=== PATIENT | male | born 1995 | race Caucasian/White ===

== ENCOUNTER 2019-05-20 15:17 | Outpatient (CLI) | payer OTHER | END 2019-05-20 15:18 | disposition critical access hospital (66) | LOC: EMS 15:17 | PROVIDERS: ATTEND Surgery | DX: R40.20 Unspecified coma (principal) | CPT/HCPCS: A0425; A0427 ==

== ENCOUNTER 2019-05-20 15:39 | Emergency (ER) | payer OTHER ==
[2019-05-20] MEDS ORDERED: SODIUM CHLORIDE 0.9% 1,000 ML IV ONE ×3 (15:56→17:29)
[2019-05-20 15:59] LABS: BASOPHILS % (AUTO) 0.3 %; EOSINOPHILS # (AUTO) 0.1 10^3/uL (0.0-0.7); EOSINOPHILS % (AUTO) 1.5 %; HGB - HEMOGLOBIN 15.2 g/dL (14.0-18.0); LYMPHOCYTES # (AUTO) 1.7 10^3/uL (1.5-3.5); LYMPHOCYTES % (AUTO) 23.8 %; MEAN CORPUSCULAR HGB CONC 34.9 g/dL (32.0-36.0); MEAN CORPUSCULAR VOLUME 88.8 fL (80.0-94.0); MEAN PLATELET VOLUME 10.7 fL (7.4-11.4); MONOCYTES # (AUTO) 0.9 10^3/uL (0.0-1.0); MONOCYTES % (AUTO) 12.1 %; NEUTROPHILS # (AUTO) 4.4 10^3/uL (1.5-6.6); NEUTROPHILS % (AUTO) 61.9 %; PLT - PLATELET COUNT 187 10^3/uL (130-450); RED CELL DISTRIBUTION WIDTH 11.7 % (12.0-15.0); WHITE BLOOD COUNT 7.1 x10^3/uL (4.8-10.8)
--- NOTE | 2019-05-20 16:00 | ED Physician Documentation ---
History of Present Illness - Stated complaint Stated Complaint: OD - Chief complaint Chief Complaint: General - History obtained from History obtained from: Patient, Family, EMS - History of Present Illness Timing: Today Pain level max: 0 Pain level now: 0 - Additonal information Additional information: 24-year-old male states that he took a 30 mg Percocet at 3 AM and took a second 1 at an unknown time. He was at the [employer] drive[place]through when he became unconscious in his vehicle. No pneumonia was called. He apparently was not breathing. He did have pulses however. Breathing was assisted and Narcan given. Symptoms resolved. Patient states that he is not homicidal or suicidal. He does state that he was trying to get high. Better with Narcan. Nothing makes it worse Patient does state that these were not prescribed to him Review of Systems Ten Systems: 10 systems reviewed and negative Constitutional: denies: Fever, Chills Cardiac: denies: Chest pain / pressure Respiratory: denies: Cough, Wheezing GI: denies: Abdominal Pain, Nausea, Vomiting, Diarrhea Skin: denies: Rash Musculoskeletal: denies: Neck pain, Back pain Neurologic: denies: Headache PD PAST MEDICAL HISTORY - Past Medical History Past Medical History: No - Past Surgical History Past Surgical History: No - Allergies Allergies/Adverse Reactions: Allergies Allergy/AdvReac Type Severity Reaction Status Date / Time No Known Drug Allergies Allergy Verified 05/20/19 15:41 - Social History Does the pt smoke?: Yes Smoking Status: Current every day smoker Does the pt drink ETOH?: No Does the pt have substance abuse?: No - Immunizations Immunizations are current?: No - POLST Patient has POLST: No PD ED PE NORMAL - Vitals Vital signs reviewed: Yes - General General: Alert and oriented X 3, No acute distress, Well developed/nourished - HEENT HEENT: Moist mucous membranes, Other ([place] pupils bilaterally) - Neck Neck: Supple, no meningeal sign - Cardiac Cardiac: RRR, Strong equal pulses - Respiratory Respiratory: No respiratory distress, Clear bilaterally - Abdomen Abdomen: Soft, Non tender, Non distended - Derm Derm: Warm and dry, No rash - Extremities Extremities: No edema, No calf tenderness / cord - Neuro Neuro: Alert and oriented X 3, residential life director 2-12 intact, No motor deficit, No sensory deficit, Normal speech Eye Opening: Spontaneous Motor: Obeys Commands - Psych Psych: Normal mood, Normal affect Results - Vitals Vitals: Vital Signs - 24 hr 05/20/19 05/20/19 05/20/19 15:41 15:50 18:14 Temperature 37.3 C Heart Rate 109 H 105 H 83 Respiratory 14 12 15 Rate Blood Pressure 142/80 H 142/80 H 107/52 L O2 Saturation 100 99 98 05/20/19 20:00 Temperature Heart Rate 77 Respiratory 12 Rate Blood Pressure 105/50 L O2 Saturation 98 Oxygen O2 Source Room air - EKG (time done) 1545 Rate: Rate (enter#) (103) Rhythm: Sinus tachycardia [place]: Normal Intervals: Normal [place] QRS: Normal Ischemia: Normal ST segments - Labs Labs: Laboratory Tests 05/20/19 05/20/19 05/20/19 15:51 15:51 15:51 WBC 7.1 RBC 4.90 Hgb 15.2 Hct 43.5 MCV 88.8 MCH 31.0 MCHC 34.9 RDW 11.7 L Plt Count 187 MPV 10.7 Neut # (Auto) 4.4 Lymph # (Auto) 1.7 [place] # (Auto) 0.9 Eos # (Auto) 0.1 Baso # (Auto) 0.0 Absolute Nucleated RBC 0.00 Nucleated RBC % 0.0 Sodium 140 Potassium 3.3 L Chloride 104 Carbon Dioxide 26 Anion Gap 10.0 BUN 13 Creatinine 1.0 Estimated GFR (MDRD) 90 Glucose 131 H Calcium 9.7 Total Bilirubin 3.4 H AST 28 ALT 26 Alkaline Phosphatase 41 L Total Protein 7.4 Albumin 5.0 Globulin 2.4 Albumin/Globulin Ratio 2.1 Lipase 29 TSH 3.20 Urine Color Urine Clarity Urine pH Ur Specific [place] Urine Protein Urine Glucose (UA) Urine Ketones Urine Occult Blood Urine Nitrite Urine Bilirubin Urine Urobilinogen Ur Leukocyte Esterase Urine RBC Urine WBC Ur Squamous Epith Cells Amorphous Sediment Urine Bacteria Urine Casts Ur Microscopic Review Urine Culture Comments Salicylates < 6.0 Urine Opiates Screen Ur Oxycodone Screen Urine Methadone Screen Ur Propoxyphene Screen Acetaminophen < 10 L Ur Barbiturates Screen Ur Tricyclics Screen Ur Phencyclidine Scrn Ur Amphetamine Screen U Methamphetamines Scrn U Benzodiazepines Scrn Urine Cocaine Screen U Cannabinoids Screen Ethyl Alcohol < 5.0 05/20/19 16:00 WBC RBC Hgb Hct MCV MCH MCHC RDW Plt Count MPV Neut # (Auto) Lymph # (Auto) [place] # (Auto) Eos # (Auto) Baso # (Auto) Absolute Nucleated RBC Nucleated RBC % Sodium Potassium Chloride Carbon Dioxide Anion Gap BUN Creatinine Estimated GFR (MDRD) Glucose Calcium Total Bilirubin AST ALT Alkaline Phosphatase Total Protein Albumin Globulin Albumin/Globulin Ratio Lipase TSH Urine Color YELLOW Urine Clarity CLEAR Urine pH 7.0 Ur Specific [place] 1.020 Urine Protein 30 H Urine Glucose (UA) NEGATIVE Urine Ketones NEGATIVE Urine Occult Blood NEGATIVE Urine Nitrite NEGATIVE Urine Bilirubin NEGATIVE Urine Urobilinogen 1 (NORMAL) Ur Leukocyte Esterase NEGATIVE Urine RBC None Seen Urine WBC 0-3 Ur Squamous Epith Cells NONE SEEN Amorphous Sediment Few Urine Bacteria None Seen Urine Casts 0-2 Hyaline Casts Ur Microscopic Review INDICATED Urine Culture Comments NOT INDICATED Salicylates Urine Opiates Screen NEGATIVE Ur Oxycodone Screen NEGATIVE Urine Methadone Screen NEGATIVE Ur Propoxyphene Screen NEGATIVE Acetaminophen Ur Barbiturates Screen NEGATIVE Ur Tricyclics Screen NEGATIVE Ur Phencyclidine Scrn NEGATIVE Ur Amphetamine Screen NEGATIVE U Methamphetamines Scrn NEGATIVE U Benzodiazepines Scrn NEGATIVE Urine Cocaine Screen NEGATIVE U Cannabinoids Screen POSITIVE H Ethyl Alcohol PD MEDICAL DECISION MAKING - ED course Complexity details: reviewed results, re-evaluated patient, considered differential, d/w patient, d/w family ED course: Patient observed for several hours in the emergency department. He did get drowsy at one point, but did not need any oxygen or resuscitative measures. His urine drug screen is negative for opiates, possible that he received fentanyl rather than oxycodone. Patient was given resources for narcotic abuse. His family stayed with him in the emergency department. At the time of discharge, he is awake, alert and speaking clearly without any drowsiness or slurring of his speech. Patient counseled regarding the dangers of using narcotics, especially those that are not prescribed to him or purchased off of the street. Patient and family counseled regarding signs and symptoms for which I believe and urgent re-evaluation would be necessary. Patient with good understanding of and agreement to plan and is comfortable going home at this time This document was made in part using voice recognition software. While efforts are made to proofread this document, sound alike and grammatical errors may occur. Departure - Departure Disposition: 01 Home, Self Care Clinical Impression: Narcotic overdose Qualifiers: Encounter type: initial encounter Injury intent: accidental or unintentional Qualified Code(s): T40.601A - Poisoning by unspecified narcotics, accidental (unintentional), initial encounter Condition: Good Instructions: ED Overdose Accidental, ED Overdose Opiate Follow-Up: your,doctor as needed. [Other] Comments: Return if you worsen. You should avoid narcotics, especially if they are not prescribed to you. You have been given resources for counseling and help with narcotic issues. Crisis Line and is available to talk to someone [email or web address] is also available to chat with someone online if you prefer. There are also many resources on this website and apps for your phone to help with your mental health You can also text the word START to 212-866-6842 to chat with someome via text. Discharge Date/Time: 05/20/19 20:00
[2019-05-20 16:10] LABS: MUDS CUTOFF CONCENTRATIONS CUTOFF CONC BELOW:
[2019-05-20 16:11] LABS: GLUCOSE, URINE (UA) NEGATIVE (NEGATIVE); KETONES,URINE (UA) NEGATIVE (NEGATIVE); LEUKOCYTE ESTERASE, URINE NEGATIVE (NEGATIVE); NITRITE,URINE NEGATIVE (NEGATIVE); OCCULT BLOOD,URINE NEGATIVE (NEGATIVE); PROTEIN,URINE 30 mg/dL (NEGATIVE); UROBILINOGEN,URINE 1 (NORMAL) E.U./dL (NORMAL)
[2019-05-20 16:13] LABS: BILIRUBIN,URINE NEGATIVE (NEGATIVE); CLARITY,URINE CLEAR (CLEAR); ICTOTEST,URINE NEGATIVE
[2019-05-20 16:17] LABS: ACETAMINOPHEN < 10 ug/mL (10-30); ALBUMIN/GLOBULIN RATIO 2.1 (1.0-2.2); ALKALINE PHOSPHATASE 41 IU/L (42-121); ALT ALANINE AMINOTRANSFERASE 26 IU/L (10-60); AST ASPARTATE AMINOTRANSFERASE 28 IU/L (10-42); BILIRUBIN,TOTAL 3.4 mg/dL (0.2-1.0); BUN - BLOOD UREA NITROGEN 13 mg/dL (6-20); CALCIUM 9.7 mg/dL (8.5-10.3); CARBON DIOXIDE - CO2 26 mmol/L (21-32); CHLORIDE 104 mmol/L (101-111); GFR - MDRD 90 (>89); GLUCOSE 131 mg/dL (70-100); LIPASE 29 U/L (22-51); SALICYLATE < 6.0 mg/dL; SODIUM 140 mmol/L (135-145); TOTAL PROTEIN 7.4 g/dL (6.7-8.2)
[2019-05-20 16:19] LABS: AMORPHOUS SEDIMENT,UR Few /LPF; BACTERIA,URINE None Seen /HPF (None Seen); CASTS, URINE 0-2 Hyaline Casts /LPF; RBC,URINE None Seen /HPF (0-5); SQUAMOUS EPITHELIAL CELL,UR NONE SEEN (<= Few)
[2019-05-20 16:22] LABS: AMPHETAMINE SCREEN,URINE NEGATIVE (NEGATIVE); BENZODIAZEPINES SCREEN, URINE NEGATIVE (NEGATIVE); COCAINE SCREEN URINE NEGATIVE (NEGATIVE); METHADONE SCREEN, URINE NEGATIVE (NEGATIVE); METHAMPHETAMINES SCREEN, URINE NEGATIVE (NEGATIVE); OPIATE SCREEN, URINE NEGATIVE (NEGATIVE); OXYCODONE SCREEN, URINE NEGATIVE (NEGATIVE); PROPOXYPHENE SCREEN, URINE NEGATIVE (NEGATIVE); TRICYCLIC ANTIDEPRESSANT,URINE NEGATIVE (NEGATIVE)
[2019-05-20] MEDS ORDERED: IBUPROFEN 800 MG TABLET PO STA (17:18)
[2019-05-20] MEDS ORDERED: ONDANSETRON 4 MG/2 ML VIAL IVP STA (17:29)
[2019-05-20 20:01] VITALS: BP 105/50
== END 2019-05-20 20:00 | disposition home or self-care (01) ==
LOC: EDUNIT# → ED 15:39
DX: T40.601A Poisoning by unspecified narcotics, accidental (unintentional), initial encounter (principal); R40.20 Unspecified coma; R00.0 Tachycardia, unspecified; F17.200 Nicotine dependence, unspecified, uncomplicated
CPT/HCPCS: 36415; 80320; 80329; 81001; 83690; 93005; 96361; 96374; 99284; A9270; 80053; 80306; 80307; 81003; 84443; 85025; 87086

== ENCOUNTER 2019-09-29 03:52 | Outpatient (CLI) | payer OTHER | END 2019-09-29 03:53 | disposition EMS.NT | LOC: EMS 03:52 | PROVIDERS: ATTEND Surgery | DX: R40.20 Unspecified coma (principal) ==

== ENCOUNTER 2019-11-28 17:21 | Outpatient (CLI) | payer OTHER ==
--- NOTE | 2019-11-28 18:08 | XRAY Report ---
PROCEDURE: Tib/Fib LT INDICATIONS: Lt fibula tenderness TECHNIQUE: 2 views of the tibia and fibula were acquired. COMPARISON: None FINDINGS: Bones: No fractures or dislocations. No suspicious bony lesions. Soft tissues: No suspicious soft tissue calcifications or masses. IMPRESSION: Unremarkable radiographic examination of left lower leg. Reviewed by: Hardik Barber MD on 11/28/2019 6:07 PM PDT Approved by: Hardik Barber MD on 11/28/2019 6:07 PM PDT Station ID: [id number]
--- NOTE | 2019-11-28 18:09 | XRAY Report ---
PROCEDURE: Ankle 3 View LT INDICATIONS: Lt ankle pain TECHNIQUE: 3 views of the ankle were acquired. COMPARISON: None FINDINGS: Bones: No fractures or dislocations. Ankle mortise is normally aligned. No suspicious bony lesions . Soft tissues: No tibiotalar joint effusion. Achilles tendon appears normal. Mild ankle soft tissue swelling is seen. Well-corticated calcification adjacent to posterior lateral aspect of the calcaneu s is seen which may represent an old avulsion injury. IMPRESSION: No acute ankle fracture or dislocation. Intact ankle mortise. Suggestion of old avulsion injury involving the tip of lateral malleolus. Mild ankle soft tissue swelling. Reviewed by: Hardik Barber MD on 11/28/2019 6:08 PM PDT Approved by: Hardik Barber MD on 11/28/2019 6:08 PM PDT Station ID: [id number]
== END 2019-11-28 17:22 | disposition home or self-care (01) ==
LOC: DI 17:21
PROVIDERS: ATTEND Physician Assistant
DX: M25.572 Pain in left ankle and joints of left foot (principal); M79.662 Pain in left lower leg